=== PATIENT | male | born 1975 | race Caucasian/White ===

== ENCOUNTER 2022-04-07 19:29 | Emergency (ER) | payer MEDICAID ==
[2022-04-07] MEDS: methylPREDNISolone Sodium Succinate 125 MG/2 ML SDV IVPUSH ONE (20:38)
[2022-04-07] MEDS: diphenhydrAMINE 50 MG/ML SDV IVPUSH ONE (20:40)
[2022-04-07 21:17] LABS: ANION GAP 13.3 mEq/L (7-13)
== END 2022-04-07 22:50 | disposition home or self-care (01) ==
LOC: DL.ED 19:29
DX: U07.1 COVID-19 (principal); R21 Rash and other nonspecific skin eruption; F17.210 Nicotine dependence, cigarettes, uncomplicated
CPT/HCPCS: 36415; 71045; 80053; 83605; 85025; 85379; 86788; 87081; 87430; 93005; 93010; 96374; 96375; 99283; 99283-25; J1200; J2930; U0002

== ENCOUNTER 2023-04-22 16:31 | Emergency (ER) | payer MEDICAID ==
[2023-04-22 17:13] LABS: APPEARANCE,URINE TURBID (CLEAR); BILIRUBIN,URINE SMALL (NEGATIVE); COLOR,URINE YELLOW (YELLOW); GLUCOSE,URINE NEGATIVE (NEGATIVE); KETONES,URINE NEGATIVE (NEGATIVE); LEUKOCYTE ESTERASE,URINE TRACE (NEGATIVE); NITRITE,URINE POSITIVE (NEGATIVE); OCCULT BLOOD,URINE MODERATE (NEGATIVE); PH,URINE 5.5 (5.0-9.0); PROTEIN,URINE >=300 (NEGATIVE); UROBILINOGEN,URINE 0.2 mg/dL (0.2-1.0)
[2023-04-22 17:26] LABS: BACTERIA,URINE MANY /HPF (0-FEW/HPF); EPITHELIAL CELLS,URINE FEW /HPF (NOT SEEN); MUCUS,URINE FEW /LPF (NOT SEEN); WBC,URINE >100 /HPF (0-5/HPF)
== END 2023-04-22 17:49 | disposition home or self-care (01) ==
LOC: DL.ED 16:31
DX: N39.0 Urinary tract infection, site not specified (principal); F17.210 Nicotine dependence, cigarettes, uncomplicated
CPT/HCPCS: 81001; 87086; 87088; 87186; 99283